=== PATIENT | male | born 1945 | race Native Hawaiian/Other Pacific Islander ===

== ENCOUNTER 2017-09-23 09:12 | Outpatient (CLI) | payer OTHER | END 2017-09-23 20:15 | disposition home or self-care (01) | LOC: US 09:12 | DX: R31.0 Gross hematuria (principal) ==

== ENCOUNTER 2017-11-19 07:49 | Outpatient (CLI) | payer OTHER ==
[2017-11-19 08:31] LABS: PLATELET COUNT 207 K/uL (142-355)
[2017-11-19 09:18] LABS: POTASSIUM 4.6 mmol/L (3.6-5.2)
== END 2017-11-19 19:13 | disposition home or self-care (01) ==
LOC: LABW 07:49
PROVIDERS: Internal Medicine
DX: E03.9 Hypothyroidism, unspecified (principal); E78.00 Pure hypercholesterolemia, unspecified; E79.0 Hyperuricemia without signs of inflammatory arthritis and tophaceous disease; E11.9 Type 2 diabetes mellitus without complications; I10 Essential (primary) hypertension; N40.0 Benign prostatic hyperplasia without lower urinary tract symptoms
CPT/HCPCS: 36415; 80053; 80061; 81000; 82043; 82570; 83036; 84153; 84439; 84443; 84550; 85027

== ENCOUNTER 2018-08-04 08:57 | Outpatient (CLI) | payer OTHER ==
[2018-08-04 09:28] LABS: PLATELET COUNT 186 K/uL (142-355)
[2018-08-04 09:40] LABS: POTASSIUM 4.6 mmol/L (3.6-5.2)
== END 2018-08-04 20:29 | disposition home or self-care (01) ==
LOC: LABW 08:57
PROVIDERS: Internal Medicine
DX: I10 Essential (primary) hypertension (principal); K57.90 Diverticulosis of intestine, part unspecified, without perforation or abscess without bleeding; E11.9 Type 2 diabetes mellitus without complications; E78.00 Pure hypercholesterolemia, unspecified; E79.0 Hyperuricemia without signs of inflammatory arthritis and tophaceous disease; E03.9 Hypothyroidism, unspecified
CPT/HCPCS: 36415; 80053; 80061; 82043; 82570; 83036; 84439; 84443; 84550; 85027

== ENCOUNTER 2019-05-04 05:52 | Outpatient (CLI) | payer OTHER ==
[2019-05-04 06:15] LABS: PLATELET COUNT 187 K/uL (142-355)
[2019-05-04 07:03] LABS: POTASSIUM 4.1 mmol/L (3.6-5.2)
== END 2019-05-04 20:17 | disposition home or self-care (01) ==
LOC: LABW 05:52
PROVIDERS: Internal Medicine
DX: Z00.00 Encounter for general adult medical examination without abnormal findings (principal); E11.9 Type 2 diabetes mellitus without complications
CPT/HCPCS: 36415; 80053; 81000; 83036; 84439; 84443; 85027

== ENCOUNTER 2019-12-22 09:01 | Outpatient (CLI) | payer OTHER | END 2019-12-22 20:05 | disposition home or self-care (01) | LOC: US 09:01 | DX: I73.9 Peripheral vascular disease, unspecified (principal) ==

== ENCOUNTER 2020-09-25 07:30 | Outpatient (CLI) | payer OTHER ==
[2020-09-25 08:01] LABS: PLATELET COUNT 190 K/uL (142-355)
[2020-09-25 09:22] LABS: POTASSIUM 4.7 mmol/L (3.6-5.2)
== END 2020-09-25 18:57 | disposition home or self-care (01) ==
LOC: LABW 07:30
PROVIDERS: ATTEND Internal Medicine
DX: E11.9 Type 2 diabetes mellitus without complications (principal); E79.0 Hyperuricemia without signs of inflammatory arthritis and tophaceous disease; N40.0 Benign prostatic hyperplasia without lower urinary tract symptoms
CPT/HCPCS: 36415; 80053; 80061; 81000; 82043; 82570; 83036; 84153; 84439; 84443; 84550; 85027

== ENCOUNTER 2021-01-24 07:18 | Outpatient (CLI) | payer OTHER | END 2021-01-24 19:38 | disposition home or self-care (01) | LOC: US 07:18 | PROVIDERS: ATTEND Internal Medicine | DX: M79.89 Other specified soft tissue disorders (principal) ==

== ENCOUNTER 2021-02-17 09:44 | Emergency (ER) | payer OTHER ==
[~2021-02-17] VITALS: Ht 177.8 cm; Wt 99.8 kg
[2021-02-17 09:44] VITALS: TEMP 98.6
[2021-02-17 10:11] LABS: PLATELET COUNT 201 K/uL (142-355)
[2021-02-17 10:18] LABS: POTASSIUM 4.2 mmol/L (3.6-5.2)
[2021-02-17 11:08] LABS: PARTIAL THROMBOPLASTIN TIME 25.2 SECONDS (24.5-33.6)
[2021-02-17 13:58] VITALS: BP 100/58
== END 2021-02-17 14:11 | disposition short-term general hospital (02) ==
LOC: ED 09:55
PROVIDERS: Emergency Medicine Emergency Medical Services
DX: I21.19 ST elevation (STEMI) myocardial infarction involving other coronary artery of inferior wall (principal); I21.09 ST elevation (STEMI) myocardial infarction involving other coronary artery of anterior wall; I48.91 Unspecified atrial fibrillation
CPT/HCPCS: 36415; 80053; 83735; 83880; 84484; 85027; 85610; 85730; 93005; 96361; 96365; 96375; 99285; J1644; J3490

== ENCOUNTER 2021-04-25 09:13 | Outpatient (CLI) | payer OTHER ==
[2021-04-25 09:36] LABS: PLATELET COUNT 163 K/uL (142-355)
[2021-04-25 10:59] LABS: POTASSIUM 4.7 mmol/L (3.6-5.2)
== END 2021-04-25 23:00 | disposition home or self-care (01) ==
LOC: LABW 09:13
PROVIDERS: ATTEND Internal Medicine Cardiovascular Disease
DX: I48.91 Unspecified atrial fibrillation (principal)
CPT/HCPCS: 36415; 80048; 83735; 84439; 84443; 85027

== ENCOUNTER 2021-05-26 13:47 | Outpatient (CLI) | payer OTHER ==
[2021-05-26 14:00] LABS: PLATELET COUNT 178 K/uL (142-355)
[2021-05-26 14:58] LABS: POTASSIUM 5.3 mmol/L (3.6-5.2)
== END 2021-05-26 19:04 | disposition home or self-care (01) ==
LOC: LAB 13:47
PROVIDERS: ATTEND Internal Medicine
DX: N40.0 Benign prostatic hyperplasia without lower urinary tract symptoms (principal); E11.9 Type 2 diabetes mellitus without complications; E03.8 Other specified hypothyroidism
CPT/HCPCS: 80053; 80061; 81000; 83036; 84153; 84439; 84443; 84550; 85027

== ENCOUNTER 2021-06-25 08:15 | Outpatient (CLI) | payer OTHER ==
[2021-06-25 08:36] LABS: PLATELET COUNT 162 K/uL (142-355)
[2021-06-25 08:38] LABS: POTASSIUM 4.4 mmol/L (3.6-5.2)
== END 2021-06-25 19:06 | disposition home or self-care (01) ==
LOC: LABW 08:15
PROVIDERS: ATTEND Nurse Practitioner Family
DX: I48.19 Other persistent atrial fibrillation (principal)
CPT/HCPCS: 36415; 80048; 85027

== ENCOUNTER 2021-07-31 08:25 | Outpatient (CLI) | payer OTHER ==
[2021-07-31 08:39] LABS: PLATELET COUNT 163 K/uL (142-355)
[2021-07-31 09:39] LABS: POTASSIUM 4.6 mmol/L (3.6-5.2)
== END 2021-07-31 21:23 | disposition home or self-care (01) ==
LOC: LABW 08:25
PROVIDERS: ATTEND Internal Medicine Cardiovascular Disease
DX: I48.19 Other persistent atrial fibrillation (principal)
CPT/HCPCS: 36415; 80048; 83735; 84439; 84443; 85027

== ENCOUNTER 2021-08-27 09:03 | Outpatient (CLI) | payer OTHER ==
[2021-08-27 09:59] LABS: PLATELET COUNT 235 K/uL (142-355)
== END 2021-08-27 18:52 | disposition home or self-care (01) ==
LOC: LABW 09:03
PROVIDERS: ATTEND Nurse Practitioner Family
DX: I48.91 Unspecified atrial fibrillation (principal)
CPT/HCPCS: 36415; 85027

== ENCOUNTER 2021-10-17 09:22 | Outpatient (CLI) | payer OTHER ==
[2021-10-17 09:37] LABS: PLATELET COUNT 233 K/uL (142-355)
== END 2021-10-17 21:16 | disposition home or self-care (01) ==
LOC: LABW 09:22
PROVIDERS: ATTEND Nurse Practitioner Family
DX: I48.91 Unspecified atrial fibrillation (principal)
CPT/HCPCS: 36415; 85027

== ENCOUNTER 2021-11-19 17:48 | Outpatient (CLI) | payer OTHER ==
[2021-11-19 18:09] LABS: PLATELET COUNT 225 K/uL (142-355)
[2021-11-19 18:27] LABS: POTASSIUM 4.7 mmol/L (3.6-5.2)
== END 2021-11-19 19:03 | disposition home or self-care (01) ==
LOC: LAB 17:48
PROVIDERS: ATTEND Internal Medicine
DX: E11.9 Type 2 diabetes mellitus without complications (principal); E79.0 Hyperuricemia without signs of inflammatory arthritis and tophaceous disease; E03.8 Other specified hypothyroidism
CPT/HCPCS: 80053; 80061; 81002; 83036; 84439; 84443; 84550; 85027

== ENCOUNTER 2022-01-11 07:38 | Emergency (ER) | payer OTHER ==
[~2022-01-11] VITALS: Ht 177.8 cm; Wt 98.4 kg
[2022-01-11 07:40] VITALS: TEMP 97.3
[2022-01-11 08:49] LABS: PLATELET COUNT 191 K/uL (142-355)
[2022-01-11 08:58] LABS: POTASSIUM 4.4 mmol/L (3.6-5.2)
[2022-01-11 12:45] VITALS: BP 103/58
== END 2022-01-11 12:49 | disposition home or self-care (01) ==
LOC: ED 07:38
PROVIDERS: Emergency Medicine
DX: K57.32 Diverticulitis of large intestine without perforation or abscess without bleeding (principal); K63.9 Disease of intestine, unspecified
CPT/HCPCS: 36415; 80053; 83690; 85027; 96360; 96365; 96366; 96375; 96376; 99284; J0744; J2270; J2405; J3490; Q9963

== ENCOUNTER 2022-03-16 07:15 | Inpatient (IN) | payer OTHER ==
[2022-03-16] VITALS (8 sets, daily range): BP systolic 94–107; BP diastolic 43–66; TEMP 97.9–103; Ht 180.3 cm; Wt 96.8 kg
[~2022-03-16] VITALS: Ht 180.3 cm; Wt 96.8 kg
[2022-03-16 07:47] LABS: PLATELET COUNT 215 K/uL (142-355)
[2022-03-16 07:52] LABS: POTASSIUM 4.1 mmol/L (3.6-5.2)
[2022-03-16] MEDS ORDERED: BAYER CHEWABLE81 MG PO (08:18)
[2022-03-16] MEDS ORDERED: ALLO300T23 PO (12:07)
[2022-03-16] MEDS ORDERED: GLIM4TAB PO (12:07)
[2022-03-16] MEDS ORDERED: JANUMET1 TA1 PO (12:08)
[2022-03-16] MEDS ORDERED: RAMI2.5C2 PO (12:08)
[2022-03-16] MEDS ORDERED: LEVO0.117 PO (12:10)
[2022-03-16] MEDS ORDERED: ROSU10TA PO (12:10)
[2022-03-16] MEDS ORDERED: CLOPIDOGREL75 MG PO (12:11)
[2022-03-16] MEDS ORDERED: TAMSULOSIN0.4 MG PO (12:11)
[2022-03-17] VITALS (7 sets, daily range): BP systolic 91–169; BP diastolic 47–69; TEMP 97.4–101.4
[2022-03-17 11:58] LABS: PLATELET COUNT 150 K/uL (142-355)
[2022-03-17 12:05] LABS: POTASSIUM 4.1 mmol/L (3.6-5.2)
[2022-03-18 05:04] LABS: PLATELET COUNT 136 K/uL (142-355)
[2022-03-18 05:18] LABS: POTASSIUM 4.4 mmol/L (3.6-5.2)
[2022-03-18 06:34] VITALS: BP 95/54; TEMP 97.6
[2022-03-18 12:00] VITALS: BP 101/55; TEMP 97.9
[2022-03-18 16:11] VITALS: BP 109/61; TEMP 98.5
[2022-03-18 19:35] VITALS: BP 101/60; TEMP 98.2
[2022-03-18 23:35] VITALS: BP 124/62; TEMP 99.3
[2022-03-19 03:36] VITALS: BP 112/64; TEMP 99.6
[2022-03-19 08:00] VITALS: BP 110/57; TEMP 98.8
[2022-03-19 12:00] VITALS: BP 121/60; TEMP 98.6
[2022-03-19] MEDS ORDERED: LEVO0.0529 PO (12:44)
[2022-03-19] MEDS ORDERED: PACERONE200 MG PO (12:45)
[2022-03-19] MEDS ORDERED: LEVAQUIN250 MG PO (12:47)
== END 2022-03-19 13:40 | DRG 872 ==
LOC: ED 07:15 → MED/SURG 10:15
PROVIDERS: Emergency Medicine; ADMIT Internal Medicine; ATTEND Internal Medicine
DX: A41.51 Sepsis due to Escherichia coli [E. coli] (principal); N39.0 Urinary tract infection, site not specified; N17.8 Other acute kidney failure; E03.8 Other specified hypothyroidism; I95.89 Other hypotension; N40.0 Benign prostatic hyperplasia without lower urinary tract symptoms; I48.91 Unspecified atrial fibrillation; Z79.01 Long term (current) use of anticoagulants; R53.1 Weakness; R26.9 Unspecified abnormalities of gait and mobility; I10 Essential (primary) hypertension; E86.0 Dehydration; W18.39XA Other fall on same level, initial encounter; Y92.89 Other specified places as the place of occurrence of the external cause; E11.65 Type 2 diabetes mellitus with hyperglycemia; Z79.84 Long term (current) use of oral hypoglycemic drugs
CPT/HCPCS: 36415; 51702; 80048; 80053; 81000; 82948; 83735; 84145; 84439; 84443; 84484; 85027; 87040; 87077; 87086; 87088; 87186; 87205; 87502; 87635; 93005; 96360; 96361; 96365; 99284; J0696; J1720; J1815; U0003

== ENCOUNTER 2022-03-19 17:49 | Inpatient (IN) | payer OTHER ==
[~2022-03-19 17:49] MED LIST: ALLO300T23 PO; BAYER CHEWABLE81 MG PO; CLOPIDOGREL75 MG PO; GLIM4TAB PO; JANUMET1 TA1 PO; LEVAQUIN250 MG PO; LEVO0.0529 PO; LEVO0.117 PO; PACERONE200 MG PO; RAMI2.5C2 PO; ROSU10TA PO; TAMSULOSIN0.4 MG PO
== END 2022-03-26 10:59 | disposition home or self-care (01) ==
LOC: PAVB 17:49
PROVIDERS: ADMIT Internal Medicine; ATTEND Internal Medicine
DX: N39.0 Urinary tract infection, site not specified (principal); A41.51 Sepsis due to Escherichia coli [E. coli]; M62.81 Muscle weakness (generalized); R26.81 Unsteadiness on feet; R27.9 Unspecified lack of coordination; Z74.1 Need for assistance with personal care; R48.8 Other symbolic dysfunctions
CPT/HCPCS: 87081

== ENCOUNTER 2022-07-20 14:35 | Outpatient (CLI) | payer OTHER ==
[2022-07-20 14:50] LABS: PLATELET COUNT 198 K/uL (142-355)
[2022-07-20 15:17] LABS: POTASSIUM 4.4 mmol/L (3.6-5.2)
== END 2022-07-20 20:38 | disposition home or self-care (01) ==
LOC: LAB 14:35
PROVIDERS: ATTEND Internal Medicine
DX: E11.9 Type 2 diabetes mellitus without complications (principal); E03.8 Other specified hypothyroidism
CPT/HCPCS: 80053; 80061; 81002; 83036; 84439; 84443; 84550; 85027

== ENCOUNTER 2022-10-23 11:14 | Outpatient (CLI) | payer OTHER | END 2022-10-23 19:06 | disposition home or self-care (01) | LOC: CT 11:14 → LAB 11:14 | PROVIDERS: ATTEND Internal Medicine | DX: R31.9 Hematuria, unspecified (principal); R30.0 Dysuria; N39.0 Urinary tract infection, site not specified | CPT/HCPCS: 81000; 87077; 87086; 87088; 87186 ==